=== PATIENT | male | born 1970 | race Caucasian/White ===

== ENCOUNTER 2016-05-04 17:34 | Emergency (ER) | payer OTHER ==
--- NOTE | ~2016-05-04 | EKG ---
PATIENT: FILIPPO MACIEL UNIT #: [id number] Ventricular Rate: 36 BPM Atrial Rate: 36 BPM P-R Interval: 122 ms QRS Duration: 86 ms Q-T Interval: 488 ms QTC Calculation(Bezet): 377 ms Calculated R [place]: 50 degrees Calculated T [place]: 62 degrees Diagnosis Line: Marked sinus bradycardia Diagnosis Line: Abnormal ECG Diagnosis Line: No previous ECGs available Diagnosis Line: Confirmed by ED [place] MD ([id number]) on Diagnosis Line: 05/07/2016 11:56:29 PM INTERPRETING MD: ONDINA TAN
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
[~2016-05-04 17:34] MED LIST: AMOXICILLIN500 M1 PO; ASPIRIN PO; CIPRO PO; FLEXERIL PO; FLEXERIL10 MG PO; IBUPROFEN PO; IBUPROFEN800 MG PO; MOBIC PO; MOTRIN600 MG PO; NO MEDICATIONS; ORUDIS75 M1 PO; PEN-VEE K PO; PREDNISONE PO; ULTRAM PO; VICODIN 5/1 TAB 5/50 PO; VICODIN 5/500 T1 TAB PO; VOLTAREN75 MG PO; ZITHROMAX PO
[2016-05-04 18:20] LABS: BASOPHIL# 0.1 X10e3 (0-0.3); BASOPHIL% 0.8 % (0-2.5); EOSINOPHIL# 0.2 X10e3 (0-0.7); HEMATOCRIT 43.2 % (38.0-50.0); HEMOGLOBIN 14.3 gm/dL (13.0-16.0); LYMPHOCYTE# 1.8 X10e3 (1.0-3.5); LYMPHOCYTE% 9.8 % (17.0-45.0); MEAN CELL VOLUME 89.9 FL (83-96); MEAN CORPUSCULAR HEMOGLOBIN 29.9 PG (28-34); MEAN CORPUSCULAR HGB CONC 33.2 g/dL (30-36); MEAN PLATELET VOLUME 8.8 FL (6.5-11.5); MONOCYTE# 1.1 X10e3 (0-1.0); MONOCYTE% 6.3 % (3.0-12.0); NEUTROPHIL# 14.8 X10e3 (1.5-7.1); NEUTROPHIL% 82.1 % (40-75); PLATELET COUNT 246 X10e3 (140-420); RED CELL DISTRIBUTION WIDTH 13.3 % (11.0-15.5)
[2016-05-04 18:21] LABS: DIFF IND YES
[2016-05-04 18:35] LABS: ALBUMIN SERUM 4.6 g/dL (3.5-5.0); ALKALINE PHOSPHATASE 70 U/L (32-92); ALT (SGPT) 36 U/L (10-40); AST (SGOT) 68 U/L (10-42); BILIRUBIN, DIRECT 0.2 mg/dL (0.0-0.2); BILIRUBIN,INDIRECT 0.6 mg/dL (0.0-0.9); BILIRUBIN,TOTAL 0.8 mg/dL (0.2-2.0); BLOOD UREA NITROGEN 17 mg/dL (9-23); BUN/CREATININE RATIO 15.45; CALCIUM SERUM 8.8 mg/dL (8.4-10.2); CARBON DIOXIDE 26 mmol/L (22-31); CHLORIDE 102 mmol/L (100-111); CREATININE SERUM 1.1 mg/dL (0.6-1.4); GLOM FILT RATE Estimated ABOVE60 mL/min (>60); GLUCOSE FASTING 130 mg/dL (70-110); POTASSIUM 3.8 mmol/L (3.5-5.1); PROTEIN TOTAL SERUM 7.1 g/dL (6.0-8.3); SODIUM 137 mmol/L (135-145)
[2016-05-04 18:37] LABS: PLATELET ESTIMATE NORMAL (NORMAL); RBC NORMAL YES
[2016-05-04 18:54] LABS: ALCOHOL BLOOD <5 mg/dL (0)
== END 2016-05-04 22:35 | disposition short-term general hospital (02) ==
LOC: CED 17:34
PROVIDERS: Emergency Medicine
DX: S01.81XA Laceration without foreign body of other part of head, initial encounter (principal); S01.112A Laceration without foreign body of left eyelid and periocular area, initial encounter; R00.1 Bradycardia, unspecified; S02.69XA Fracture of mandible of other specified site, initial encounter for closed fracture; S02.40EA Zygomatic fracture, right side, initial encounter for closed fracture; F17.200 Nicotine dependence, unspecified, uncomplicated; Z90.89 Acquired absence of other organs; Y04.0XXA Assault by unarmed brawl or fight, initial encounter; Y92.9 Unspecified place or not applicable
CPT/HCPCS: 12011; 36415; 70450; 70486; 72125; 80048; 80076; 83735; 85025; 93005; 99285; G0480